=== PATIENT | male | born 1975 | race African-American/Black ===

== ENCOUNTER 2023-03-18 11:38 | Outpatient (CLI) | payer BC, SELFPAY ==
[2023-03-18 12:22] LABS: Basophils Percent Auto 0.4 % (0.2-1.2); Eosinophils Absolute Auto 0.1 K/mm3 (0-0.3); Eosinophils Percent Auto 2.2 % (0-4.4); Hematocrit 43.7 % (42.0-52.0); Hemoglobin 14.4 g/dL (14.0-18.0); Immature Granulocyte Absolute 0.01 K/mm3 (0.00-0.031); Immature Granulocyte Percent A 0.2 % (0-0.5); Lymphocytes Absolute Auto 0.99 K/mm3 (0.9-3.2); Lymphocytes Percent Auto 21.5 % (18.3-44.2); Mean Corpuscular Hemoglobin 31.6 pg (26-34); Mean Corpuscular Volume 95.8 fl (80-100); Monocytes Absolute Auto 0.5 K/mm3 (0.1-0.6); Monocytes Percent Auto 9.8 % (2.6-8.5); Neutrophils Percent Auto 65.9 % (45.5-73.1); Platelet Count Result 272 k/mm3 (150-375); Red Blood Count 4.56 M/mm3 (4.6-6.20); White Blood Count 4.6 K/mm3 (4.5-10.0)
[2023-03-18 12:36] LABS: Alanine Aminotransferase 28 U/L (6-50); Albumin Level 4.8 g/dL (3.5-5.1); Alkaline Phosphatase 77 U/L (38-126); Anion Gap 8 mmol/L (8-16); Aspartate Amino Transferase 26 U/L (17-59); Bilirubin,Total 0.6 mg/dL (0.2-1.3); Blood Urea Nitrogen 9 mg/dL (9-20); Calcium 9.5 mg/dL (8.4-10.2); Carbon Dioxide 24 mmol/L (22-30); Chloride 104 mmol/L (98-107); Cholesterol 232 mg/dL (0-200); Estimated Glomerular Filt Rate > 60; Glucose 92 mg/dL (65-110); HDL Direct 50 mg/dL; Potassium 4.1 mmol/L (3.4-5.0); Sodium 136 mmol/L (137-145); Triglycerides 126 mg/dL (<150)
[2023-03-18 12:40] LABS: Creatinine Urine 119.8 mg/dL
[2023-03-18 12:45] LABS: Microalbumin Urine Random 8.4 mg/L (0-16.7)
[2023-03-18 12:48] LABS: LDL Cholesterol Direct 145 mg/dL
[2023-03-18 13:01] LABS: Prostate Specific Antigen 0.6 ng/mL (< OR = 4.0)
== END 2023-03-18 11:39 | disposition home or self-care (01) ==
LOC: ANHLAB 11:40
PROVIDERS: PCP Family Medicine; Visit Provider Family Medicine
DX: D50.0 Iron deficiency anemia secondary to blood loss (chronic) (principal); E11.9 Type 2 diabetes mellitus without complications; Z79.4 Long term (current) use of insulin; Z12.5 Encounter for screening for malignant neoplasm of prostate
CPT/HCPCS: 36415; 80053; 80061; 82043; 82607; 82728; 84153; 85025; G0103

== ENCOUNTER 2023-03-22 16:07 | Outpatient (CLI) | payer BC, SELFPAY ==
[2023-03-22 19:28] LABS: Hemoglobin A1C 5.3 % (<5.7)
== END 2023-03-22 16:08 | disposition home or self-care (01) ==
LOC: ANHGOSHLAB 16:10
PROVIDERS: PCP Family Medicine; Visit Provider Family Medicine
DX: E11.9 Type 2 diabetes mellitus without complications (principal); Z79.4 Long term (current) use of insulin
CPT/HCPCS: 36415; 83036

== ENCOUNTER 2023-04-05 14:42 | Outpatient (CLI) | payer BC, SELFPAY ==
--- NOTE | 2023-04-05 15:00 | ECG_ITS ---
Measurements Intervals [place] Rate: 90 P: 53 MA: 153 QRS: 58 QRSD: 72 T: 14 QT: 334 QTc: 409 Interpretive Statements SINUS RHYTHM EARLY PRECORDIAL R/S TRANSITION NONSPECIFIC T-WAVE ABNORMALITY- ANTEROLATERAL LEADS BASELINE ARTIFACT- I, II, AVR, AVL, AVF BORDERLINE ECG NO PREVIOUS ECG AVAILABLE FOR COMPARISON Electronically Signed On 04-05-2023 18:31:28 CDT by Florentin Sparrow D.O.
== END 2023-04-05 14:43 | disposition home or self-care (01) ==
LOC: ANHSURGERY 14:46
PROVIDERS: PCP Family Medicine; Visit Provider Surgery
DX: E11.9 Type 2 diabetes mellitus without complications (principal); R94.31 Abnormal electrocardiogram [ECG] [EKG]; Z79.4 Long term (current) use of insulin
CPT/HCPCS: 93005

== ENCOUNTER 2023-04-06 00:24 | Day surgery (SDC) | payer BC, SELFPAY ==
[2023-04-01 11:43] VITALS: BMI 28.7
--- NOTE | 2023-04-01 11:48 | PC.NURSE ---
Report to the Outpatient Waiting Room, entrance under the green pavilion located off [facility], at time 10:00 on date 04/06/23. Planned Procedure Time: 12:00. Time changes happen often and if your time is changed the preop area will call you the afternoon before. - You and your visitor will be asked to self-screen and do not enter if you have any COVID symptoms. - A mask is optional within the hospital at this time. Patients may have clear liquids (water, carbonated beverages, clear teas, apple juice) until 3 hours prior to surgery with a maximum of 20 ounces. - No food from midnight until time of surgery Take the following medications with a SIP of water the morning of surgery: 1/2 MORNING INSULIN DOSE (8 UNITS) - UNLESS BLOOD SUGAR IS LOW DO NOT STOP ANY OF YOUR OTHER PRESCRIPTION MEDICATIONS PRIOR TO SURGERY EXCEPT THE FOLLOWING Medications to discontinue per physician: VITAMINS/SUPPLEMENTS Date to take last dose: 04/02/23 Please no make-up, nail mauritanian, hairspray, perfume, deodorant, or body powder the day of surgery. No jewelry (including any body piercings) or valuables the day of surgery, leave them at home. Please take a shower or bath the night before, or the morning of, surgery with an antibacterial soap. Wear comfortable, loose fitting clothing. - Jewelry must be removed prior to entering the operating room. Rings and piercings that are not removed may be cut off. - The hospital will not accept responsibility for valuables. - Please leave all valuables, including medications, at home the day of surgery. If you are going home after surgery, a licensed trolley coach driver must drive you home. - NO public transportation without another adult if you receive anesthesia. - We recommend that an adult stay with you for 24 hours following discharge. - We also recommend that you do not drive, make important decision, drink alcoholic beverages, or take any drugs that were not prescribed by your health care provider for at least 24 hours after your discharge time. Follow any additional instructions given to you from your surgeon. If you or anyone in your household have experienced Covid symptoms in the past week, please notify your surgeon or the nurse liaison at the phone number below for possible testing. Telephone instructions given to PT - KAREN BENITEZ and asked if any additional questions and then verbalized understanding. Patient advised to call surgeon office or pre surgery nurse liaison [phone] if any additional questions.
--- NOTE | 2023-04-05 14:19 | WPDANESEPPF ---
Anes - Initial Pre Proc Eval Procedure: Operation Date: 04/06/23 12:00 Proposed Procedures p Rectal Exam Under Anesthesia, Hemorrhoidectomy - Collette Phoenix MD Date/Time: 04/05/23 14:19 Surgeon: Collette Phoenix MD Pre Op Diagnosis: bleeding hemorrhoid Patient Data Age: 47 Gender: M Height: 1.78 m Weight: 90.72 kg Allergies Allergy/AdvReac Type Severity Reaction Status Date / Time Penicillins Allergy Mild Unknown Verified 04/06/23 10:14 Home Medications Medication Instructions Recorded Confirmed Type docusate sodium 100 mg capsule 100 mg PO DAILY 03/15/23 04/20/23 History (Colace) famotidine 40 mg tablet 40 mg PO QHS 03/15/23 04/20/23 History ferrous sulfate 325 mg (65 mg 325 mg PO DAILY 03/15/23 04/20/23 History iron) tablet insulin glargine U-300 conc 300 16 unit subcut BID 03/15/23 04/20/23 History unit/mL (3 mL) subcutaneous pen (Toujeo Max U-300 SoloStar) magnesium 250 mg tablet 250 mg PO DAILY 03/15/23 04/20/23 History pen needle, diabetic 32 gauge x #200 ea 03/22/23 04/20/23 Rx 5/32 (BD Cinthia 2nd Gen Pen Needle) atorvastatin 10 mg tablet 10 mg PO QHS #90 tabs 03/23/23 04/20/23 Rx losartan 25 mg tablet 25 mg PO DAILY #90 tabs 04/12/23 04/20/23 Rx metformin 500 mg tablet 1,000 mg PO BID #360 tabs 04/12/23 04/20/23 Rx hydrocodone 7.5 mg-acetaminophen 1 tablet PO Q6H PRN pain #25 tabs 04/19/23 04/20/23 Rx 325 mg tablet Patient hx anesthesia problems: none Family hx anesthesia problems: none Results Review: All pre-operative results and documents have been reviewed as part of the pre-operative evaluation. [facility] Past Medical History Medical History Diabetes HTN (hypertension) Family History Family History Mother Depression Asthma Father Hypertension Heart disease Sibling Heart disease Grandparent Diabetes mellitus Hypertension Social History Social History Smoking packs per day: 1 Smoking cigarettes per day: 20.0 Years smoked: 20 Smoking pack-years: 20.00 Smoking status: Former smoker Tobacco type: cigarettes Smoking end date: 11/21/17 Alcohol intake: current Drinks per week: 7 Alcohol use details: JEVON Substance use: never Substance use type: does not use Lack of Transportation: No Lack of Food: Never True Current Housing: I Have Housing Concerned About Future Housing: No Difficulty Paying Gas/Electric Bills: No Difficulty Paying for Meds: No Currently Unemployed: No Education: Trade/Vocational Certificate Difficulty w/ Childcare or Family Care: No Living arrangements: with family Occupation/Education: occupation Additional occupation/education comments: [employer] Spiritual care concerns: No Anes - Eval Final PreProcedure Day of Procedure 04/05/23 14:19 Patient weight: overweight Heart: regular rate and rhythm Lungs: clear to auscultation Airway: Mallampati scale class II Neurological: alert and oriented Last oral intake: >/= 8 hours ASA classification: III Emergent: no Anesthetic plan: proceed Anesthesia type and monitoring: general LMA and standard monitoring Results Review: All pre-operative results and documents have been reviewed as part of the pre-operative evaluation. Informed Consent: The patient's anesthetic plan and its attendant risks and benefits were discussed with the patient/family/POA. Questions were solicited and answers provided to the satisfaction of the patient/family/POA.
[2023-04-06] VITALS (7 sets, daily range): BP systolic 98–129; BP diastolic 61–81; PULSE 83–91; RESP 16–20; TEMP 36.1–36.6; O2SAT 95–100
[2023-04-06] MEDS: LACTATED RINGERS 1,000 ML 30 ML IV CONT ×2 (10:33→13:06)
[2023-04-06] MEDS: ACETAMINOPHEN 500 MG TABLET 1000 MG PO (10:34)
[2023-04-06] MEDS: KETOROLAC 15 MG/ML VIAL (*BKC) IV PUSH (10:34)
[2023-04-06 10:36] LABS: Glucose Point of Care 80 mg/dl (65-105)
--- NOTE | 2023-04-06 11:21 | WPDANESEPPF ---
Anes - Initial Pre Proc Eval Procedure: Operation Date: 04/06/23 12:00 Proposed Procedures p Rectal Exam Under Anesthesia, Hemorrhoidectomy - Collette Phoenix MD Date/Time: 04/06/23 11:21 Surgeon: Collette Phoenix MD Pre Op Diagnosis: bleeding hemorrhoid Patient Data Age: 47 Gender: M Height: 1.78 m Weight: 91.7 kg Last Vital Signs Temp 97.0 F L 04/06/23 10:13 Pulse 88 04/06/23 10:13 Resp 16 04/06/23 10:13 BP 129/80 04/06/23 10:13 Pulse Ox 98 04/06/23 10:13 O2 Del Method Room Air 04/06/23 10:13 Allergies Allergy/AdvReac Type Severity Reaction Status Date / Time Penicillins Allergy Mild Unknown Verified 04/06/23 10:14 Home Medications Medication Instructions Recorded Confirmed Type docusate sodium 100 mg capsule 100 mg PO DAILY 03/15/23 04/06/23 History (Colace) famotidine 40 mg tablet 40 mg PO QHS 03/15/23 04/06/23 History ferrous sulfate 325 mg (65 mg 325 mg PO DAILY 03/15/23 04/06/23 History iron) tablet insulin glargine U-300 conc 300 16 unit subcut BID 03/15/23 04/06/23 History unit/mL (3 mL) subcutaneous pen (Toujeo Max U-300 SoloStar) losartan 25 mg tablet 25 mg PO DAILY 03/15/23 04/06/23 History magnesium 250 mg tablet 250 mg PO DAILY 03/15/23 04/06/23 History metformin 500 mg tablet 1,000 mg PO BID 03/15/23 04/06/23 History pen needle, diabetic 32 gauge x #200 ea 03/22/23 04/06/23 Rx /32 (BD Cinthia 2nd Gen Pen Needle) atorvastatin 10 mg tablet 10 mg PO QHS #90 tabs 03/23/23 04/06/23 Rx Laboratory Tests 04/06/23 10:31 POC Capillary Glucose 80 mg/dl (65-105) Patient hx anesthesia problems: none Family hx anesthesia problems: none Results Review: All pre-operative results and documents have been reviewed as part of the pre-operative evaluation. [facility] Past Medical History Medical History Diabetes HTN (hypertension) Family History Family History Mother Depression Asthma Father Hypertension Heart disease Sibling Heart disease Grandparent Diabetes mellitus Hypertension Social History Social History Smoking packs per day: 1 Smoking cigarettes per day: 20.0 Years smoked: 20 Smoking pack-years: 20.00 Smoking status: Former smoker Tobacco type: cigarettes Smoking end date: 11/21/17 Alcohol intake: current Drinks per week: 7 Alcohol use details: JEVON Substance use: never Substance use type: does not use Lack of Transportation: No Lack of Food: Never True Current Housing: I Have Housing Concerned About Future Housing: No Difficulty Paying Gas/Electric Bills: No Difficulty Paying for Meds: No Currently Unemployed: No Education: Trade/Vocational Certificate Difficulty w/ Childcare or Family Care: No Living arrangements: with family Occupation/Education: occupation Additional occupation/education comments: [employer]- [employer] Spiritual care concerns: No Anes - Eval Final PreProcedure Day of Procedure 04/06/23 11:21 Patient weight: obese Heart: regular rate and rhythm Lungs: clear to auscultation Airway: Mallampati scale class II Neurological: alert and oriented Last oral intake: >/= 8 hours ASA classification: III Emergent: no Anesthetic plan: proceed Anesthesia type and monitoring: general ETT and standard monitoring Results Review: All pre-operative results and documents have been reviewed as part of the pre-operative evaluation. Informed Consent: The patient's anesthetic plan and its attendant risks and benefits were discussed with the patient/family/POA. Questions were solicited and answers provided to the satisfaction of the patient/family/POA.
--- NOTE | 2023-04-06 11:37 | WPDHPUPDATE1 ---
History and Physical Update Update Date/Time: 04/06/23 11:37 History and Physical has been reviewed, including an updated exam of the patient. There are NO changes in the patient's condition. Risks, benefits, and alternatives have been discussed and questions answered. Patient agrees to proceed with procedure.
[2023-04-06] MEDS: BUPIVACAINE/EPINEPHRINE 0.25% 10 ML VIAL 30 ML INFILTRATE (12:26)
[2023-04-06] MEDS: LIDOCAINE HCL 2% GEL UROJET 10 ML PKG MUCOUS MEM (12:26)
[2023-04-06] MEDS: ceFAZolin 2 GM/D5W 50 ML 2 GM/50 ML BAG IVPB (12:26)
[2023-04-06 13:21] LABS: Glucose Point of Care 89 mg/dl (65-105)
--- NOTE | 2023-04-06 13:22 | W.PM.PROC2 ---
Procedure Note - Detailed Date of Procedure 04/06/23 Pre-op Diagnosis bleeding, thrombosed hemorrhoids Post-op Diagnosis Same Procedure Performed Exam under anesthesia,internal hemorrhoidectomy left lateral bleeding hemorrhoid, external hemorrhoidectomy involving left lateral and right anterior positions with thrombosis Surgeon Collette Phoenix MD Anesthesia General Indications 47 y/o M c multiple thrombosed external hemorrhoids, bleeding internal hemorrhoid Findings multiple thrombosed external hemorrhoids predominately in L lateral and R anterior, bleeding internal hemorrhoid in L lateral Description of Procedure The patient was taken to the operating room and placed in the modified lithotomy position. After adequate induction of general anesthesia, the patient was prepped and draped in the normal sterile fashion. A time-out was then done to verify the patient's identity, as well as the procedure being performed. I began by doing a digital exam. There was noted to be multiple thrombosed external hemorrhoids and one bleeding internal hemorrhoid were noted. At this point, a bilateral pudendal block was done. Then used the lone Star retractor to further evaluate the anal canal as well as rectum, other than hemorrhoids no other pathology was noted. I 1st excised the left lateral bleeding internal hemorrhoid. This was done using the hand-held LigaSure device. I then began excising the external hemorrhoids using the hand-held LigaSure device. There were multiple thrombosed hemorrhoids noted to be in the left lateral and right anterior positions. Multiple hemorrhoids were excised using the LigaSure. The specimens will be sent to pathology for further review. Hemostasis was noted at all excision sites. I then placed a piece of Gelfoam covered with lidocaine jelly into the rectal vault. The patient tolerated the procedure and was extubated in the operating room postop. He will be transferred to the recovery room in stable condition. Implants Gelfoam covered with lidocaine jelly in the rectal vault Estimated Blood Loss 5 Drains No Packing Yes Pathology Yes Complications No immediate complications Condition Stable Disposition PACU
[2023-04-06] MEDS: oxyCODONE HCL (*CRX) 5 MG TAB IR PO (14:14)
--- NOTE | 2023-04-06 14:50 | SUR.PHASEII ---
Patient dressed and waiting for to picker tender helper. Vital signs stable, IV removed. Discharge instructions reviewed with patient.
== END 2023-04-06 15:04 | disposition home or self-care (01) ==
PROVIDERS: PCP Family Medicine; Visit Provider Surgery
PROC: (CPT 46260; principal; 2023-04-06 12:00)
DX: K64.5 Perianal venous thrombosis (principal); E11.9 Type 2 diabetes mellitus without complications; I10 Essential (primary) hypertension
CPT/HCPCS: 46260; 82948; 88304; A9270; J0690; J1100; J1885; J2250; J2405; J2704; J3010; J7120

== ENCOUNTER 2023-07-21 09:35 | Outpatient (CLI) | payer BC, SELFPAY ==
[2023-07-21 11:15] LABS: Basophils Percent Auto 1.1 % (0.2-1.2); Eosinophils Absolute Auto 0.1 K/mm3 (0-0.3); Eosinophils Percent Auto 3.4 % (0-4.4); Hematocrit 43.2 % (42.0-52.0); Hemoglobin 14.6 g/dL (14.0-18.0); Immature Granulocyte Absolute 0.01 K/mm3 (0.00-0.031); Immature Granulocyte Percent A 0.3 % (0-0.5); Lymphocytes Absolute Auto 1.43 K/mm3 (0.9-3.2); Lymphocytes Percent Auto 37.9 % (18.3-44.2); Mean Corpuscular HGB Conc 33.8 g/dl (32-36); Mean Corpuscular Hemoglobin 30.9 pg (26-34); Mean Corpuscular Volume 91.5 fl (80-100); Mean Platelet Volume 8.8 fl (7.4-10.4); Monocytes Absolute Auto 0.5 K/mm3 (0.1-0.6); Monocytes Percent Auto 12.2 % (2.6-8.5); Neutrophils Absolute Auto 1.7 K/mm3 (1.3-6.7); Neutrophils Percent Auto 45.1 % (45.5-73.1); Platelet Count Result 281 k/mm3 (150-375); Red Blood Count 4.72 M/mm3 (4.6-6.20); Red Cell Distribution Width 14.1 % (11.5-14.5); White Blood Count 3.8 K/mm3 (4.5-10.0)
[2023-07-21 11:26] LABS: Alanine Aminotransferase 31 U/L (6-50); Albumin Level 4.8 g/dL (3.5-5.1); Alkaline Phosphatase 68 U/L (38-126); Anion Gap 8 mmol/L (8-16); Aspartate Amino Transferase 53 U/L (17-59); Bilirubin,Total 0.5 mg/dL (0.2-1.3); Blood Urea Nitrogen 10 mg/dL (9-20); Calcium 9.8 mg/dL (8.4-10.2); Carbon Dioxide 28 mmol/L (22-30); Chloride 104 mmol/L (98-107); Cholesterol 169 mg/dL (0-200); Estimated Glomerular Filt Rate > 60; Glucose 87 mg/dL (65-110); HDL Direct 56 mg/dL; Potassium 4.6 mmol/L (3.4-5.0); Sodium 140 mmol/L (137-145); Triglycerides 70 mg/dL (<150)
[2023-07-21 11:40] LABS: Creatinine Urine 223.7 mg/dL
[2023-07-21 11:44] LABS: LDL Cholesterol Direct 90 mg/dL
[2023-07-21 11:48] LABS: MALB Creatinine Ratio 7.2 mg/g (0-30)
[2023-07-21 12:03] LABS: Hemoglobin A1C 5.8 % (<5.7)
[2023-07-26 10:17] LABS: Immunoglobulin A 266 mg/dL (47-310); TTG IGA AB <1.0 U/mL (<15.0)
== END 2023-07-21 09:36 | disposition home or self-care (01) ==
LOC: ANHGOSHLAB 09:37
PROVIDERS: Nurse Practitioner Family; PCP Family Medicine; Visit Provider Family Medicine
DX: D50.0 Iron deficiency anemia secondary to blood loss (chronic) (principal); E11.9 Type 2 diabetes mellitus without complications; Z79.4 Long term (current) use of insulin; E66.3 Overweight; E78.2 Mixed hyperlipidemia
CPT/HCPCS: 36415; 80053; 80061; 82043; 82607; 82728; 82784; 83036; 85025; 86364

== ENCOUNTER 2024-01-11 10:54 | Outpatient (CLI) | payer BC, SELFPAY ==
[2024-01-11 13:48] LABS: Hemoglobin A1C 5.9 % (<5.7)
[2024-01-11 14:28] LABS: Alanine Aminotransferase 25 U/L (6-50); Albumin Level 4.8 g/dL (3.5-5.1); Alkaline Phosphatase 78 U/L (38-126); Anion Gap 8 mmol/L (8-16); Aspartate Amino Transferase 73 U/L (17-59); Bilirubin,Total 0.7 mg/dL (0.2-1.3); Blood Urea Nitrogen 10 mg/dL (9-20); Calcium 9.9 mg/dL (8.4-10.2); Carbon Dioxide 29 mmol/L (22-30); Chloride 102 mmol/L (98-107); Cholesterol 136 mg/dL (0-200); Estimated Glomerular Filt Rate > 60; Glucose 95 mg/dL (65-110); HDL Direct 41 mg/dL; Potassium 4.5 mmol/L (3.4-5.0); Sodium 139 mmol/L (137-145); Triglycerides 91 mg/dL (<150)
[2024-01-11 14:38] LABS: LDL Cholesterol Direct 69 mg/dL
[2024-01-11 14:58] LABS: Creatinine Urine 273.6 mg/dL
[2024-01-11 15:01] LABS: MALB Creatinine Ratio 3.7 mg/g (0-30); Microalbumin Urine Random 10.2 mg/L (0-16.7)
== END 2024-01-11 10:55 | disposition home or self-care (01) ==
LOC: ANHGOSHLAB 10:55
PROVIDERS: PCP Family Medicine; Visit Provider Family Medicine
DX: E11.9 Type 2 diabetes mellitus without complications (principal); Z79.4 Long term (current) use of insulin
CPT/HCPCS: 36415; 80053; 80061; 82043; 82607; 83036

== ENCOUNTER → 2024-01-11 11:07 | Outpatient (CLI) | payer BC, SELFPAY ==
--- NOTE | ~2024-01-11 | XR_ITS ---
Right Knee Technique: AP, lateral, and sunrise views were obtained. Clinical History: Pain Findings: No fracture or dislocation is seen. Bipartite patella noted. Osseous alignment is anatomic. Mild tricompartmental spurring noted. Soft tissues are unremarkable. No joint effusion is seen. Impression: Mild tricompartmental degenerative spurring. Reviewed, dictated and finalized at location . AL OFFICER Impression: Mild tricompartmental degenerative spurring.
== END ==
PROVIDERS: PCP Family Medicine; Visit Provider Family Medicine
DX: M25.761 Osteophyte, right knee (principal)
CPT/HCPCS: 73562

== ENCOUNTER 2025-01-03 10:56 | Outpatient (CLI) | payer BC, SELFPAY ==
--- OUTSIDE RECORDS SUMMARY | 2025-01-03 11:06 | XMS_ITS | Referral Summary ---
Author Organization [facility] [employer] Address [address] [place] [address] Care Team Providers Care Steward Dishwasher Name Role Phone Unavailable Primary Care Provider Unavailabl e Source Comments [facility] [employer],non-owned Affiliates and Associated Physician Practices is amultiple site organization consisting of ambulatory clinics and hospital sitesin [place], [place], [place] and [place]. This disclosure is being madepursuant to the Care Everywhere program and may not contain all information available regarding this patient. Last updated 18.[facility] [employer] Allergies Active Allergy Reactions Criticality Noted Date Comments Penicillins Unknown 11/05/2018 Medications * Be aware that medications may not be up to date on this document. Alwaysverify current medications with the patient. Medication Sig Dispensed Refills Start Date End Date Status cyclobenzaprine (FLEXERIL) 10 MG tablet Take 1 tablet by mouth 3 times daily as needed for Muscle Spasms 10 tablet 11/05/2018 Active naproxen (NAPROSYN) 500 MG tablet Take 1 tablet by mouth 2 times daily 30 tablet 11/05/2018 Active Active Problems No known active problems Social History Tobacco Use Types Packs/Day Years Used Date Smoking Tobacco: Never Smokeless Tobacco: Never Alcohol Use Standard Drinks/Week Comments Yes 0 (1 standard drink = 0.6 oz pur e alcohol) Sex and Gender Information Value Date Recorded Sex Assigned at Not on file Gender Identity Not on file Sexual Orientation Not on file Last Filed Vital Signs Vital Sign Reading Time Taken Comments Blood Pressure 157/91 11/05/2018 1:54 PM PAINTING MACHINE OPERATOR Pulse 93 11/05/2018 1:54 PM PAINTING MACHINE OPERATOR Temperature 37.5 C (99.5 F) 11/05/2018 1:54 PM PAINTING MACHINE OPERATOR Respiratory Rate 16 11/05/2018 1:54 PM PAINTING MACHINE OPERATOR Oxygen Saturation 95% 11/05/2018 1:54 PM PAINTING MACHINE OPERATOR Inhaled Oxygen Concentration - - Weight 93.4 kg (206 lb) 11/05/2018 1:54 PM PAINTING MACHINE OPERATOR Height 180.3 cm (5' 11 ) 11/05/2018 1:54 PM PAINTING MACHINE OPERATOR Body Mass Index 28.73 11/05/2018 1:54 PM PAINTING MACHINE OPERATOR Plan of Treatment Not on file
--- OUTSIDE RECORDS SUMMARY | 2025-01-03 11:06 | XMS_ITS | Patient Health Summary ---
Author Organization [facility] [employer] Address [address] [place] [address] Care Team Providers Care Plug Maker Name Role Phone Unavailable Primary Care Provider Unavailabl e Note from [facility],non-owned Affiliates and Associated Physician Practices is amultiple site organization consisting of ambulatory clinics and hospital sitesin [place], [place], [place] and [place]. This disclosure is being madepursuant to the Care Everywhere program and may not contain all information available regarding this patient. Last updated 18.[facility] Allergies * Penicillins(Unknown) Medications * Be aware that medications may not be up to date on this document. Alwaysverify current medications with the patient. * cyclobenzaprine (FLEXERIL) 10 MG tablet(Started 11/05/2018) Take 1 tablet by mouth 3 times daily as needed for Muscle Spasms * naproxen (NAPROSYN) 500 MG tablet(Started 11/05/2018) Take 1 tablet by mouth 2 times daily Active Problems No known active problems Social [...] Comments Blood Pressure 157/91 11/05/2018 1:54 PM STAVE CUTTING SUPERVISOR Pulse 93 11/05/2018 1:54 PM STAVE CUTTING SUPERVISOR Temperature 37.5 C (99.5 F) 11/05/2018 1:54 PM STAVE CUTTING SUPERVISOR Respiratory Rate 16 11/05/2018 1:54 PM STAVE CUTTING SUPERVISOR Oxygen Saturation 95% 11/05/2018 1:54 PM STAVE CUTTING SUPERVISOR Inhaled Oxygen Concentration - - Weight 93.4 kg (206 lb) 11/05/2018 1:54 PM STAVE CUTTING SUPERVISOR Height 180.3 cm (5' 11 ) 11/05/2018 1:54 PM STAVE CUTTING SUPERVISOR Body Mass Index 28.73 11/05/2018 1:54 PM STAVE CUTTING SUPERVISOR Procedures * XR SHOULDER LEFT 2VW OR MORE(Performed 11/05/2018) Performed for Acute pain of left shoulder Results * XR LEFT SHOULDER 2 PLUS VIEWS/TRAUMA (11/05/2018 3:30 PM STAVE CUTTING SUPERVISOR) Anatomical Region Laterality Modality Upper Extremity Radiographic Rosalva ging 11/05/2018 3:44 PM STAVE CUTTING SUPERVISOR Impressions 11/05/2018 3:44 PM STAVE CUTTING SUPERVISOR No acute fracture or dislocation is identified. Degenerative changes are seen in the left acromioclavicular joint. The soft tissues appear unremarkable. Reading Radiologist: Bryn Obando MD on 11/05/2018 at 3:44 PM Narrative 11/05/2018 3:44 PM STAVE CUTTING SUPERVISOR Exam: Left shoulder, 3 views. History: Shoulder pain. Procedure Note Bryn Obando MD - 11/05/2018 Exam: Left shoulder, 3 views. History: Shoulder pain. IMPRESSION No acute fracture or dislocation is identified. Degenerative changes are seen in the left acromioclavicular joint. The soft tissues appear unremarkable. Reading Radiologist: Bryn Obando MD on 11/05/2018 at 3:44 PM Lucrecia Queen AUTOMOBILE RADIATOR MECHANIC-INSPECTOR PACKER GLASS CONTAINER DIAGNOSTIC IMAG ING ORDERABLES
--- OUTSIDE RECORDS SUMMARY | 2025-01-03 11:06 | XMS_ITS | Clinical Summary ---
Author Organization [facility] [employer] Address [address] [place] [address] Care Team Providers Care Business Systems Administrator Name Role Phone Unavailable Primary Care Provider Unavailabl e Source Comments [facility] [employer],non-owned Affiliates and Associated Physician Practices is amultiple site organization consisting of ambulatory clinics and hospital sitesin [place], [place], [place] and [place]. This disclosure is being madepursuant to the Care Everywhere program and may not contain all information available regarding this patient. Last updated 18.[facility] [employer] Allergies Active Allergy Reactions Criticality Noted Date [...] Comments Blood Pressure 157/91 11/05/2018 1:54 PM RELIEF MANAGER Pulse 93 11/05/2018 1:54 PM RELIEF MANAGER Temperature 37.5 C (99.5 F) 11/05/2018 1:54 PM RELIEF MANAGER Respiratory Rate 16 11/05/2018 1:54 PM RELIEF MANAGER Oxygen Saturation 95% 11/05/2018 1:54 PM RELIEF MANAGER Inhaled Oxygen Concentration - - Weight 93.4 kg (206 lb) 11/05/2018 1:54 PM RELIEF MANAGER Height 180.3 cm (5' 11 ) 11/05/2018 1:54 PM RELIEF MANAGER Body Mass Index 28.73 11/05/2018 1:54 PM RELIEF MANAGER Plan of Treatment Health Maintenance Due Date Last Done Comments COLOGUARD (AGES 45-75) - COL ON CA SCREENING 1973 COLON MONITORING 1973 COLONOSCOPY - COLON CA SCREENING 1973 CT COLONOGRAPHY - COLON CA SCREENING 1973 Colorectal Cancer Screening 1973 FIT - COLON CA SCREENING 1973 FLEX SIG - COLON CA SCREENING 1973 LIPID TESTING 1973 HIV SCREENING 1988 HEPATITIS C SCREENING 07/30/1991 DTAP/TDAP/TD VACCINES (1 - Tdap) 1992 HEPATITIS B VACCINE (1 of 3 - 19+ 3-dose series) 1992 PNEUMOCOCCAL VACCINE 50+ (1 of 1 - PCV) 2023 ZOSTER VACCINE (1 of 2) 2023 COVID-19 VACCINE (1 - 2023-2 5 season) 2024 INFLUENZA VACCINE (#1) 2024 DEPRESSION SCREENING 11/21/2024 HIB VACCINE Aged Out No longer eligi ble based on patient's age to complete this topic HPV VACCINE Aged Out No longer eligi ble based on patient's age to complete this topic MENINGOCOCCAL (Group B) VACCINE Aged Out No longer eligible based on patient's age to complete this topic MENINGOCOCCAL VACCINE Aged Out No michelle jorge eligible based on patient's age to complete this topic PNEUMOCOCCAL VACCINE Aged Out No long er eligible based on patient's age to complete this topic
[2025-01-03 19:18] LABS: Eosinophils Absolute Auto 0.1 K/mm3 (0-0.3); Eosinophils Percent Auto 2.8 % (0-4.4); Hemoglobin 14.6 g/dL (14.0-18.0); Immature Granulocyte Absolute 0.01 K/mm3 (0.00-0.031); Immature Granulocyte Percent A 0.3 % (0-0.5); Lymphocytes Absolute Auto 1.48 K/mm3 (0.9-3.2); Lymphocytes Percent Auto 37.3 % (18.3-44.2); Mean Corpuscular HGB Conc 33.2 g/dl (32-36); Mean Corpuscular Hemoglobin 31.3 pg (26-34); Mean Corpuscular Volume 94.2 fl (80-100); Monocytes Absolute Auto 0.5 K/mm3 (0.1-0.6); Monocytes Percent Auto 12.3 % (2.6-8.5); Neutrophils Absolute Auto 1.8 K/mm3 (1.3-6.7); Neutrophils Percent Auto 46.3 % (45.5-73.1); Platelet Count Result 279 k/mm3 (150-375); Red Blood Count 4.67 M/mm3 (4.6-6.20)
[2025-01-03 19:48] LABS: Alanine Aminotransferase 34 U/L (6-50); Albumin Level 4.6 g/dL (3.5-5.1); Alkaline Phosphatase 71 U/L (38-126); Anion Gap 11 mmol/L (4-12); Aspartate Amino Transferase 37 U/L (17-59); Bilirubin,Total 0.6 mg/dL (0.2-1.3); Blood Urea Nitrogen 9 mg/dL (9-20); Calcium 9.7 mg/dL (8.4-10.2); Carbon Dioxide 25 mmol/L (22-30); Chloride 103 mmol/L (98-107); Cholesterol 184 mg/dL (0-200); Estimated Glomerular Filt Rate > 60; Glucose 101 mg/dL (65-110); HDL Direct 52 mg/dL; Potassium 4.2 mmol/L (3.4-5.0); Sodium 139 mmol/L (137-145); Triglycerides 91 mg/dL (<150)
[2025-01-03 19:59] LABS: LDL Cholesterol Direct 115 mg/dL
[2025-01-03 21:05] LABS: Hemoglobin A1C 6.3 % (<5.7)
== END 2025-01-03 10:57 | disposition home or self-care (01) ==
LOC: ANHGOSHLAB 10:56
PROVIDERS: PCP Family Medicine; Visit Provider Family Medicine
DX: R79.0 Abnormal level of blood mineral (principal); R94.5 Abnormal results of liver function studies; E11.9 Type 2 diabetes mellitus without complications; Z79.4 Long term (current) use of insulin; E78.2 Mixed hyperlipidemia; D72.819 Decreased white blood cell count, unspecified
CPT/HCPCS: 36415; 80053; 80061; 82728; 83036; 85025